=== PATIENT | male | born 1970 | race Caucasian/White ===

== ENCOUNTER 2021-01-11 14:11 | Inpatient (IN) | payer OTHER ==
[2021-01-11 15:22] VITALS: BMI 36.1
[2021-01-11] MEDS ORDERED: MAGNESIUM CITRATE 300 ML BOTTLE PO PRN (16:12)
[2021-01-11] MEDS ORDERED: MAG HYDROX/AL HYDROX/SIMETH 30 ML UNIT-DOSE CUP PO PRN (16:12)
[2021-01-11] MEDS ORDERED: hydrOXYzine PAMOATE 25 MG CAPSULE (FP) PO PRN (16:12)
[2021-01-11] MEDS ORDERED: IBUPROFEN 400 MG TABLET (FP) PO PRN (16:12)
[2021-01-11] MEDS ORDERED: ACETAMINOPHEN 325 MG TABLET (FP) PO PRN ×2 (16:12)
[2021-01-11] MEDS ORDERED: MENTHOL/PHENOL 1 EACH UD MM PRN (16:12)
[2021-01-11] MEDS ORDERED: MAGNESIUM HYDROX 2400MG/30ML ORAL SUSPENSION 30 ML CUP PO PRN (16:12)
[2021-01-11] MEDS ORDERED: BISMUTH SUBSALICYLATE 524 MG/30 ML PO PRN (16:12)
[2021-01-11] MEDS: ONDANSETRON *ODT* 4 MG TABLET SL PRN (18:42)
[2021-01-11] MEDS: METHOCARBAMOL 500 MG TABLET PO PRN (18:42)
[2021-01-11] MEDS: diazePAM 5 MG TABLET PO SCH ×2 (18:44→22:42)
[2021-01-11] MEDS: THIAMINE HCL 100 MG TABLET (FP) PO SCH (22:41)
[2021-01-11] MEDS: levETIRAcetam 500 MG TABLET (FP) PO SCH (22:41)
[2021-01-11] MEDS: MELATONIN 5 MG TABLETS PO SCH (22:42)
[2021-01-12] MEDS: diazePAM 5 MG TABLET PO SCH ×4 (05:54→22:26)
[2021-01-12] MEDS: diazePAM 5 MG TABLET PO PRN (09:06)
[2021-01-12] MEDS: PRENATAL VITAMINS W/ FOLIC ACID TABLET (FP) PO SCH (10:29)
[2021-01-12] MEDS: levETIRAcetam 500 MG TABLET (FP) PO SCH ×2 (10:29→22:32)
[2021-01-12] MEDS: ONDANSETRON *ODT* 4 MG TABLET SL PRN (10:32)
[2021-01-12 14:16] LABS: HEMOGLOBIN 12.8 GM/dL (11.7-16.9); MCH 25.3 pg (25.7-33.7); MEAN PLT VOLUME 8.5 fl (7.5-11.1); PLATELET COUNT 167 10^3/uL (134-434); RBC 5.05 M/mm3 (4.00-5.60); RDW 19.3 % (11.9-15.9)
[2021-01-12 14:26] LABS: CALCIUM 8.8 mg/dL (8.5-10.1)
[2021-01-12 14:27] LABS: ALBUMIN 3.4 g/dl (3.4-5.0)
[2021-01-12 14:32] LABS: BILIRUBIN,TOTAL 1.2 mg/dL (0.2-1); TOT PROT 6.6 g/dl (6.4-8.2)
[2021-01-12 14:38] LABS: CREATININE 0.8 mg/dL (0.55-1.3)
[2021-01-12] MEDS: THIAMINE HCL 100 MG TABLET (FP) PO SCH (22:26)
[2021-01-12] MEDS: MELATONIN 5 MG TABLETS PO SCH (22:27)
[2021-01-12] MEDS: METHOCARBAMOL 500 MG TABLET PO PRN (22:32)
[2021-01-13] MEDS: diazePAM 5 MG TABLET PO SCH ×3 (05:30→22:36)
[2021-01-13] MEDS: PRENATAL VITAMINS W/ FOLIC ACID TABLET (FP) PO SCH (10:06)
[2021-01-13] MEDS: levETIRAcetam 500 MG TABLET (FP) PO SCH ×2 (10:06→22:35)
[2021-01-13] MEDS: diazePAM 5 MG TABLET PO PRN (17:27)
[2021-01-13] MEDS: THIAMINE HCL 100 MG TABLET (FP) PO SCH (22:37)
[2021-01-13] MEDS: MELATONIN 5 MG TABLETS PO SCH (22:39)
[2021-01-14] MEDS: diazePAM 5 MG TABLET PO SCH ×2 (05:28→17:57)
[2021-01-14] MEDS: PRENATAL VITAMINS W/ FOLIC ACID TABLET (FP) PO SCH (10:40)
[2021-01-14] MEDS: diazePAM 5 MG TABLET PO PRN (10:40)
[2021-01-14] MEDS: levETIRAcetam 500 MG TABLET (FP) PO SCH ×2 (10:40→22:09)
[2021-01-14] MEDS: MELATONIN 5 MG TABLETS PO SCH (22:09)
[2021-01-14] MEDS: THIAMINE HCL 100 MG TABLET (FP) PO SCH (22:09)
[2021-01-14] MEDS: METHOCARBAMOL 500 MG TABLET PO PRN (22:11)
[2021-01-14 23:30] VITALS: TEMP 96.9
[2021-01-15] MEDS ORDERED: diazePAM 5 MG TABLET PO ONE (06:00)
[2021-01-15 06:28] VITALS: BP 116/59; PULSE 68
== END 2021-01-15 09:06 | disposition other institution (70) | DRG 775 ==
LOC: YASAS 14:11 → Y3N 16:11
PROVIDERS: ADMIT Allergy & Immunology; ATTEND Allergy & Immunology
PROC: HZ2ZZZZ Detoxification Services for Substance Abuse Treatment (ICD-10-PCS; principal; 2021-01-11)
DX: F10.230 Alcohol dependence with withdrawal, uncomplicated (principal); M54.5 Low back pain; G89.29 Other chronic pain; Z86.69 Personal history of other diseases of the nervous system and sense organs; Z90.49 Acquired absence of other specified parts of digestive tract; Z98.890 Other specified postprocedural states; Z88.0 Allergy status to penicillin
CPT/HCPCS: 36415; 80053; 85027; 86780; C9803; Q0162; U0003; U0005

== ENCOUNTER 2023-06-29 10:01 | Inpatient (IN) | payer OTHER ==
[2023-06-29 10:23] VITALS: BMI 36.2
[2023-06-29] MEDS ORDERED: chlordiazePOXIDE HCL 25 MG CAPSULE PO PRN (10:58)
[2023-06-29] MEDS ORDERED: TRIMETHOBENZAMIDE HCL 200MG/2ML INJ IM ONE (11:01)
[2023-06-29] MEDS ORDERED: LOPERAMIDE HCL 2 MG CAPSULE PO PRN (11:03)
[2023-06-29] MEDS ORDERED: MAG HYDROX/AL HYDROX/SIMETH 30 ML UNIT-DOSE CUP PO PRN (11:03)
[2023-06-29] MEDS ORDERED: guaiFENesin 600 MG TABLET.ER (FP) PO PRN (11:03)
[2023-06-29] MEDS ORDERED: P-EPHED 60MG/TRIPROLIDI 2.5MG TABLET PO PRN (11:03)
[2023-06-29] MEDS ORDERED: MAGNESIUM HYDROX 2400MG/30ML ORAL SUSPENSION 30 ML CUP PO PRN (11:03)
[2023-06-29] MEDS ORDERED: ONDANSETRON *ODT* 4 MG TABLET SL PRN (11:03)
[2023-06-29] MEDS ORDERED: BENZOCAINE/MENTHOL (CHLORASEPTIC ) LOZENGE MM PRN (11:03)
[2023-06-29] MEDS ORDERED: IBUPROFEN 600 MG TABLET (FP) PO PRN (11:03)
[2023-06-29] MEDS ORDERED: DICYCLOMINE HCL 10 MG CAPSULE PO PRN (11:03)
[2023-06-29] MEDS ORDERED: IBUPROFEN 400 MG TABLET (FP) PO PRN (11:03)
[2023-06-29] MEDS ORDERED: ACETAMINOPHEN 325 MG TABLET (FP) PO PRN (11:03)
[2023-06-29] MEDS ORDERED: BISMUTH SUBSALICYLATE 262 MG/15 ML BTL PO PRN (11:03)
[2023-06-29] MEDS ORDERED: BENZONATATE 200 MG CAPSULE PO PRN (11:03)
[2023-06-29] MEDS ORDERED: POLYETHYLENE GLYCOL (HEALTHYLAX) 3350 17 GM PACKET PO PRN (11:03)
[2023-06-29] MEDS ORDERED: chlordiazePOXIDE HCL 25 MG CAPSULE ONE (11:11)
[2023-06-29] MEDS: chlordiazePOXIDE HCL 25 MG CAPSULE PO SCH ×3 (11:18→22:19)
[2023-06-29] MEDS: levETIRAcetam 500 MG TABLET (FP) PO SCH ×2 (12:21→22:20)
[2023-06-29] MEDS ORDERED: METOPROLOL TARTRATE 25 MG TABLET (FP) PO ONE (14:00)
[2023-06-29] MEDS: MELATONIN 5 MG TABLETS PO SCH (22:20)
[2023-06-29] MEDS: THIAMINE HCL 100 MG TABLET (FP) PO SCH (22:20)
[2023-06-29] MEDS: METHOCARBAMOL 500 MG TABLET PO PRN (22:20)
[2023-06-30] MEDS: chlordiazePOXIDE HCL 25 MG CAPSULE PO SCH ×4 (05:26→22:27)
[2023-06-30 09:55] LABS: HEMATOCRIT 39.6 % (35.4-49); HEMOGLOBIN 12.8 GM/dL (11.7-16.9); MCH 26.5 pg (25.7-33.7); MCHC 32.3 g/dl (32.0-35.9); MEAN CELL VOLUME 82.2 fl (80-96); PLATELET COUNT 251 10^3/uL (134-434); RBC 4.82 M/mm3 (4.00-5.60); RDW 19.4 % (11.9-15.9); WHITE BLOOD COUNT 5.7 K/mm3 (4.0-10.0)
[2023-06-30] MEDS: levETIRAcetam 500 MG TABLET (FP) PO SCH ×2 (10:10→22:27)
[2023-06-30] MEDS: PRENATAL VITAMINS W/ FOLIC ACID TABLET (FP) PO SCH (10:12)
[2023-06-30 11:23] LABS: POTASSIUM 4.7 mmol/L (3.5-5.1)
[2023-06-30 11:55] LABS: ALBUMIN 2.8 g/dl (3.4-5.0); BLOOD UREA NITROGEN 7.3 mg/dL (7-18); CALCIUM 8.4 mg/dL (8.5-10.1)
[2023-06-30 11:58] LABS: CREATININE 0.9 mg/dL (0.55-1.3)
[2023-06-30 12:00] LABS: BILIRUBIN,TOTAL 0.4 mg/dL (0.2-1); TOT PROT 6.5 g/dl (6.4-8.2)
[2023-06-30] MEDS: MELATONIN 5 MG TABLETS PO SCH (22:27)
[2023-06-30] MEDS: THIAMINE HCL 100 MG TABLET (FP) PO SCH (22:27)
[2023-07-01] MEDS: chlordiazePOXIDE HCL 25 MG CAPSULE PO SCH ×4 (05:42→22:22)
[2023-07-01] MEDS: levETIRAcetam 500 MG TABLET (FP) PO SCH ×2 (10:06→22:22)
[2023-07-01] MEDS: PRENATAL VITAMINS W/ FOLIC ACID TABLET (FP) PO SCH (10:06)
[2023-07-01] MEDS: METHOCARBAMOL 500 MG TABLET PO PRN ×2 (15:13→22:24)
[2023-07-01] MEDS: hydrOXYzine PAMOATE 25 MG CAPSULE (FP) PO PRN (15:13)
[2023-07-01] MEDS: MELATONIN 5 MG TABLETS PO SCH (22:22)
[2023-07-01] MEDS: THIAMINE HCL 100 MG TABLET (FP) PO SCH (22:22)
[2023-07-02] MEDS ORDERED: chlordiazePOXIDE HCL 10 MG CAPSULE PO PRN
[2023-07-02] MEDS: chlordiazePOXIDE HCL 10 MG CAPSULE PO SCH ×4 (05:34→22:10)
[2023-07-02] MEDS: levETIRAcetam 500 MG TABLET (FP) PO SCH ×2 (10:03→22:11)
[2023-07-02] MEDS: PRENATAL VITAMINS W/ FOLIC ACID TABLET (FP) PO SCH (10:03)
[2023-07-02] MEDS: MELATONIN 5 MG TABLETS PO SCH (22:11)
[2023-07-02] MEDS: THIAMINE HCL 100 MG TABLET (FP) PO SCH (22:11)
[2023-07-02] MEDS: METHOCARBAMOL 500 MG TABLET PO PRN (22:12)
[2023-07-03] MEDS: chlordiazePOXIDE HCL 10 MG CAPSULE PO SCH ×2 (05:22→17:42)
[2023-07-03] MEDS: hydrOXYzine PAMOATE 25 MG CAPSULE (FP) PO PRN (10:04)
[2023-07-03] MEDS: PRENATAL VITAMINS W/ FOLIC ACID TABLET (FP) PO SCH (10:04)
[2023-07-03] MEDS: METHOCARBAMOL 500 MG TABLET PO PRN ×2 (10:04→22:03)
[2023-07-03] MEDS: THIAMINE HCL 100 MG TABLET (FP) PO SCH (22:03)
[2023-07-03] MEDS: MELATONIN 5 MG TABLETS PO SCH (22:03)
[2023-07-04] MEDS ORDERED: chlordiazePOXIDE HCL 10 MG CAPSULE PO ONE (05:00)
[2023-07-04 09:19] VITALS: BP 106/55; PULSE 94; RESP 16; TEMP 97.1
[2023-07-04] MEDS: PRENATAL VITAMINS W/ FOLIC ACID TABLET (FP) PO SCH (09:51)
== END 2023-07-04 10:14 | disposition other institution (70) | DRG 775 ==
LOC: YASAS 10:01 → Y3N 11:10
PROVIDERS: ADMIT Allergy & Immunology; ATTEND Surgery
PROC: HZ2ZZZZ Detoxification Services for Substance Abuse Treatment (ICD-10-PCS; principal; 2023-06-29)
DX: F10.230 Alcohol dependence with withdrawal, uncomplicated (principal); M19.90 Unspecified osteoarthritis, unspecified site; M54.50 Low back pain, unspecified; G89.29 Other chronic pain
CPT/HCPCS: 36415; 80053; 85027; 86780; 87635; 87811; Q0162

== ENCOUNTER 2023-08-14 14:10 | Inpatient (IN) | payer OTHER ==
[2023-08-14 14:33] VITALS: BMI 38.0
[2023-08-14] MEDS ORDERED: MAGNESIUM HYDROX 2400MG/30ML ORAL SUSPENSION 30 ML CUP PO PRN (17:39)
[2023-08-14] MEDS ORDERED: ONDANSETRON *ODT* 4 MG TABLET SL PRN (17:39)
[2023-08-14] MEDS ORDERED: guaiFENesin 600 MG TABLET.ER (FP) PO PRN (17:39)
[2023-08-14] MEDS ORDERED: NALOXONE HCL 0.4 MG/ML VIAL IM PRN (17:39)
[2023-08-14] MEDS ORDERED: hydrOXYzine PAMOATE 25 MG CAPSULE (FP) PO PRN (17:39)
[2023-08-14] MEDS ORDERED: LOPERAMIDE HCL 2 MG CAPSULE PO PRN (17:39)
[2023-08-14] MEDS ORDERED: BISMUTH SUBSALICYLATE 524 MG/30 ML PO PRN (17:39)
[2023-08-14] MEDS ORDERED: chlordiazePOXIDE HCL 25 MG CAPSULE PO PRN (17:39)
[2023-08-14] MEDS ORDERED: NALOXONE HCL (KLOXXADO) 8 MG SPRAY NS PRN (17:39)
[2023-08-14] MEDS ORDERED: BENZOCAINE/MENTHOL (CHLORASEPTIC ) LOZENGE MM PRN (17:39)
[2023-08-14] MEDS ORDERED: BENZONATATE 200 MG CAPSULE PO PRN (17:39)
[2023-08-14] MEDS ORDERED: DICYCLOMINE HCL 10 MG CAPSULE PO PRN (17:39)
[2023-08-14] MEDS ORDERED: IBUPROFEN 600 MG TABLET (FP) PO PRN (17:39)
[2023-08-14] MEDS ORDERED: ACETAMINOPHEN 325 MG TABLET (FP) PO PRN (17:39)
[2023-08-14] MEDS ORDERED: POLYETHYLENE GLYCOL (HEALTHYLAX) 3350 17 GM PACKET PO PRN (17:39)
[2023-08-14] MEDS ORDERED: MAG HYDROX/AL HYDROX/SIMETH 30 ML UNIT-DOSE CUP PO PRN (17:39)
[2023-08-14] MEDS ORDERED: IBUPROFEN 400 MG TABLET (FP) PO PRN (17:39)
[2023-08-14] MEDS ORDERED: chlordiazePOXIDE HCL 25 MG CAPSULE ONE (18:01)
[2023-08-14] MEDS: chlordiazePOXIDE HCL 25 MG CAPSULE PO ONE (18:09)
[2023-08-14] MEDS: MELATONIN 5 MG TABLETS PO SCH (22:22)
[2023-08-14] MEDS: METHOCARBAMOL 500 MG TABLET PO PRN (22:23)
[2023-08-14] MEDS: chlordiazePOXIDE HCL 25 MG CAPSULE PO SCH (22:23)
[2023-08-14] MEDS: THIAMINE HCL 100 MG TABLET (FP) PO SCH (22:23)
[2023-08-15] MEDS: PRENATAL VITAMINS W/ FOLIC ACID TABLET (FP) PO SCH (10:13)
[2023-08-15] MEDS: FLU VACCINE (FLULAVAL) PF 60 MCG/0.5 ML SYRINGE 2023-2024 IM ONE (11:43)
[2023-08-15 11:48] LABS: HEMATOCRIT 35.7 % (35.4-49); HEMOGLOBIN 11.6 GM/dL (11.7-16.9); MCH 26.7 pg (25.7-33.7); MCHC 32.5 g/dl (32.0-35.9); MEAN CELL VOLUME 82.2 fl (80-96); MEAN PLT VOLUME 8.3 fl (7.5-11.1); PLATELET COUNT 210 10^3/uL (134-434); RBC 4.34 M/mm3 (4.00-5.60); RDW 16.3 % (11.9-15.9)
[2023-08-15 12:18] LABS: CHLORIDE 109 mmol/L (98-107); POTASSIUM 3.8 mmol/L (3.5-5.1); SODIUM 142 mmol/L (136-145)
[2023-08-15 12:22] LABS: ALBUMIN 2.9 g/dl (3.4-5.0)
[2023-08-15 12:24] LABS: ANION GAP 3 mmol/L (4-13); BLOOD UREA NITROGEN 14.3 mg/dL (7-18); CALCIUM 8.2 mg/dL (8.5-10.1); CO2 29 mmol/L (21-32); GLUCOSE,RANDOM 87 mg/dL (74-106)
[2023-08-15 12:25] LABS: CREATININE 0.9 mg/dL (0.55-1.3); SGOT/AST 22 U/L (15-37); SGPT/ALT 22 U/L (13-61)
[2023-08-15 12:28] LABS: ALK PHOS 81 U/L (45-117); BILIRUBIN,TOTAL 0.4 mg/dL (0.2-1)
[2023-08-15 13:18] LABS: HIV INTERPRETATION NEGATIVE (NEGATIVE)
[2023-08-16] MEDS: chlordiazePOXIDE HCL 25 MG CAPSULE PO SCH (05:38)
[2023-08-17] MEDS ORDERED: chlordiazePOXIDE HCL 10 MG CAPSULE PO PRN
[2023-08-17] MEDS: chlordiazePOXIDE HCL 10 MG CAPSULE PO SCH (05:51)
[2023-08-17 06:11] VITALS: TEMP 98
[2023-08-17 09:16] VITALS: BP 113/75; PULSE 90; RESP 20
[2023-08-18] MEDS ORDERED: chlordiazePOXIDE HCL 10 MG CAPSULE PO SCH (05:00)
[2023-08-19] MEDS ORDERED: chlordiazePOXIDE HCL 10 MG CAPSULE PO ONE (05:00)
== END 2023-08-17 09:00 | disposition home or self-care (01) | DRG 775 ==
LOC: YASAS 14:10 → Y3N 18:24
PROVIDERS: ADMIT Allergy & Immunology; ATTEND Surgery
PROC: HZ2ZZZZ Detoxification Services for Substance Abuse Treatment (ICD-10-PCS; principal; 2023-08-14)
DX: F10.230 Alcohol dependence with withdrawal, uncomplicated (principal); D86.9 Sarcoidosis, unspecified; M54.50 Low back pain, unspecified; G89.29 Other chronic pain; Z88.0 Allergy status to penicillin; Z88.2 Allergy status to sulfonamides; Z88.8 Allergy status to other drugs, medicaments and biological substances
CPT/HCPCS: 36415; 80053; 80307; 85027; 86780; 87389; 87635; 90686; 93005; 93010; G0008

== ENCOUNTER 2023-09-09 16:58 | Inpatient (IN) | payer OTHER ==
[2023-09-09 18:09] VITALS: BMI 29.0
[2023-09-09] MEDS ORDERED: guaiFENesin 600 MG TABLET.ER (FP) PO PRN (20:46)
[2023-09-09] MEDS ORDERED: POLYETHYLENE GLYCOL (HEALTHYLAX) 3350 17 GM PACKET PO PRN (20:46)
[2023-09-09] MEDS ORDERED: ONDANSETRON *ODT* 4 MG TABLET SL PRN (20:46)
[2023-09-09] MEDS ORDERED: MAGNESIUM HYDROX 2400MG/30ML ORAL SUSPENSION 30 ML CUP PO PRN (20:46)
[2023-09-09] MEDS ORDERED: NALOXONE HCL 0.4 MG/ML VIAL IM PRN (20:46)
[2023-09-09] MEDS ORDERED: LOPERAMIDE HCL 2 MG CAPSULE PO PRN (20:46)
[2023-09-09] MEDS ORDERED: DICYCLOMINE HCL 10 MG CAPSULE PO PRN (20:46)
[2023-09-09] MEDS ORDERED: NALOXONE HCL (KLOXXADO) 8 MG SPRAY NS PRN (20:46)
[2023-09-09] MEDS ORDERED: BENZOCAINE/MENTHOL (CHLORASEPTIC ) LOZENGE MM PRN (20:46)
[2023-09-09] MEDS ORDERED: MAG HYDROX/AL HYDROX/SIMETH 30 ML UNIT-DOSE CUP PO PRN (20:46)
[2023-09-09] MEDS ORDERED: BENZONATATE 200 MG CAPSULE PO PRN (20:46)
[2023-09-09] MEDS ORDERED: chlordiazePOXIDE HCL 25 MG CAPSULE ONE (21:05)
[2023-09-09] MEDS: chlordiazePOXIDE HCL 25 MG CAPSULE PO ONE (21:15)
[2023-09-09] MEDS: chlordiazePOXIDE HCL 25 MG CAPSULE PO SCH (22:33)
[2023-09-09] MEDS: MELATONIN 5 MG TABLETS PO SCH (22:33)
[2023-09-09] MEDS: THIAMINE HCL 100 MG TABLET (FP) PO SCH (22:33)
[2023-09-10] MEDS: hydrOXYzine PAMOATE 25 MG CAPSULE (FP) PO PRN (02:02)
[2023-09-10] MEDS: chlordiazePOXIDE HCL 25 MG CAPSULE PO PRN (02:13)
[2023-09-10] MEDS: PRENATAL VITAMINS W/ FOLIC ACID TABLET (FP) PO SCH (10:11)
[2023-09-10] MEDS: ACETAMINOPHEN 325 MG TABLET (FP) PO PRN (10:13)
[2023-09-10 12:54] LABS: HEMATOCRIT 40.8 % (35.4-49); HEMOGLOBIN 13.4 GM/dL (11.7-16.9); MCH 26.3 pg (25.7-33.7); MCHC 32.9 g/dl (32.0-35.9); MEAN CELL VOLUME 79.9 fl (80-96); MEAN PLT VOLUME 8.9 fl (7.5-11.1); PLATELET COUNT 224 10^3/uL (134-434); RBC 5.11 M/mm3 (4.00-5.60); RDW 16.2 % (11.9-15.9); WHITE BLOOD COUNT 9.1 K/mm3 (4.0-10.0)
[2023-09-10 13:04] LABS: CHLORIDE 104 mmol/L (98-107); POTASSIUM 4.3 mmol/L (3.5-5.1); SODIUM 139 mmol/L (136-145)
[2023-09-10 13:12] LABS: CALCIUM 8.8 mg/dL (8.5-10.1)
[2023-09-10 13:13] LABS: ALBUMIN 3.4 g/dl (3.4-5.0); ANION GAP 8 mmol/L (4-13); BLOOD UREA NITROGEN 12.1 mg/dL (7-18); CO2 27 mmol/L (21-32); GLUCOSE,RANDOM 105 mg/dL (74-106)
[2023-09-10 13:15] LABS: CREATININE 0.9 mg/dL (0.55-1.3); SGPT/ALT 34 U/L (13-61)
[2023-09-10 13:16] LABS: SGOT/AST 36 U/L (15-37); TOT PROT 7.2 g/dl (6.4-8.2)
[2023-09-10 13:18] LABS: ALK PHOS 137 U/L (45-117)
[2023-09-10 13:24] LABS: BILIRUBIN,TOTAL 0.8 mg/dL (0.2-1)
[2023-09-11] MEDS: chlordiazePOXIDE HCL 25 MG CAPSULE PO SCH (05:18)
[2023-09-12] MEDS ORDERED: chlordiazePOXIDE HCL 10 MG CAPSULE PO PRN
[2023-09-12] MEDS: chlordiazePOXIDE HCL 10 MG CAPSULE PO SCH (05:16)
[2023-09-13] MEDS: chlordiazePOXIDE HCL 10 MG CAPSULE PO SCH (05:56)
[2023-09-13 22:06] VITALS: RESP 16
[2023-09-14] MEDS: chlordiazePOXIDE HCL 10 MG CAPSULE PO ONE (05:11)
[2023-09-14 05:43] VITALS: BP 107/68; PULSE 70; TEMP 97.8
== END 2023-09-14 09:15 | disposition home or self-care (01) | DRG 775 ==
LOC: YASAS 16:58 → Y6N 21:25
PROVIDERS: ADMIT Allergy & Immunology; ATTEND Psychiatry & Neurology Pain Medicine
PROC: HZ2ZZZZ Detoxification Services for Substance Abuse Treatment (ICD-10-PCS; principal; 2023-09-09)
DX: F10.230 Alcohol dependence with withdrawal, uncomplicated (principal); F19.24 Other psychoactive substance dependence with psychoactive substance-induced mood disorder; D86.9 Sarcoidosis, unspecified; M54.50 Low back pain, unspecified; G89.29 Other chronic pain; Z88.0 Allergy status to penicillin; Z88.2 Allergy status to sulfonamides; Z88.8 Allergy status to other drugs, medicaments and biological substances
CPT/HCPCS: 36415; 80053; 80305; 80307; 85027; 86780; 87635

== ENCOUNTER 2023-11-24 11:10 | Inpatient (IN) | payer OTHER ==
[2023-11-24] MEDS ORDERED: chlordiazePOXIDE HCL 25 MG CAPSULE PO PRN (11:55)
[2023-11-24] MEDS ORDERED: guaiFENesin 600 MG TABLET.ER (FP) PO PRN (11:59)
[2023-11-24] MEDS ORDERED: MAGNESIUM HYDROX 2400MG/30ML ORAL SUSPENSION 30 ML CUP PO PRN (11:59)
[2023-11-24] MEDS ORDERED: LOPERAMIDE HCL 2 MG CAPSULE PO PRN (11:59)
[2023-11-24] MEDS ORDERED: DICYCLOMINE HCL 10 MG CAPSULE PO PRN (11:59)
[2023-11-24] MEDS ORDERED: MAG HYDROX/AL HYDROX/SIMETH 30 ML UNIT-DOSE CUP PO PRN (11:59)
[2023-11-24] MEDS ORDERED: BENZOCAINE/MENTHOL (CHLORASEPTIC ) LOZENGE MM PRN (11:59)
[2023-11-24] MEDS ORDERED: POLYETHYLENE GLYCOL (HEALTHYLAX) 3350 17 GM PACKET PO PRN (11:59)
[2023-11-24] MEDS ORDERED: ONDANSETRON *ODT* 4 MG TABLET SL PRN (11:59)
[2023-11-24] MEDS ORDERED: BENZONATATE 200 MG CAPSULE PO PRN (11:59)
[2023-11-24] MEDS ORDERED: chlordiazePOXIDE HCL 25 MG CAPSULE ONE (12:33)
[2023-11-24] MEDS: chlordiazePOXIDE HCL 25 MG CAPSULE PO ONE (12:34)
[2023-11-24] MEDS: chlordiazePOXIDE HCL 25 MG CAPSULE PO SCH (17:20)
[2023-11-24] MEDS: ACETAMINOPHEN 325 MG TABLET (FP) PO PRN (17:23)
[2023-11-24] MEDS: MELATONIN 5 MG TABLETS PO SCH (22:11)
[2023-11-24] MEDS: THIAMINE 100 MG TABLET PO SCH (22:11)
[2023-11-24] MEDS: hydrOXYzine PAMOATE 25 MG CAPSULE (FP) PO PRN (22:13)
[2023-11-24] MEDS: METHOCARBAMOL 500 MG TABLET PO PRN (22:13)
[2023-11-25] MEDS: PRENATAL VITAMINS W/ FOLIC ACID TABLET (FP) PO SCH (10:09)
[2023-11-25 14:40] LABS: POTASSIUM 3.7 mmol/L (3.5-5.1)
[2023-11-25 14:41] LABS: HEMOGLOBIN 11.8 GM/dL (11.7-16.9); MCH 24.8 pg (25.7-33.7); MCHC 31.9 g/dl (32.0-35.9); MEAN CELL VOLUME 77.9 fl (80-96); MEAN PLT VOLUME 8.8 fl (7.5-11.1); PLATELET COUNT 217 10^3/uL (134-434); RBC 4.75 M/mm3 (4.00-5.60); RDW 18.1 % (11.9-15.9); WHITE BLOOD COUNT 6.7 K/mm3 (4.0-10.0)
[2023-11-25 14:42] LABS: CALCIUM 8.5 mg/dL (8.5-10.1)
[2023-11-25 14:43] LABS: BLOOD UREA NITROGEN 12.5 mg/dL (7-18)
[2023-11-25 14:46] LABS: CREATININE 0.9 mg/dL (0.55-1.3)
[2023-11-25 14:47] LABS: BILIRUBIN,TOTAL 0.6 mg/dL (0.2-1); TOT PROT 6.2 g/dl (6.4-8.2)
[2023-11-26] MEDS: chlordiazePOXIDE HCL 25 MG CAPSULE PO SCH (05:32)
[2023-11-26 08:35] VITALS: BP 129/80; PULSE 84; RESP 18; TEMP 97.6
[2023-11-27] MEDS ORDERED: chlordiazePOXIDE HCL 10 MG CAPSULE PO PRN
[2023-11-27] MEDS ORDERED: chlordiazePOXIDE HCL 10 MG CAPSULE PO SCH (05:00)
[2023-11-28] MEDS ORDERED: chlordiazePOXIDE HCL 10 MG CAPSULE PO SCH (05:00)
[2023-11-29] MEDS ORDERED: chlordiazePOXIDE HCL 10 MG CAPSULE PO ONE (05:00)
== END 2023-11-26 12:12 | disposition home or self-care (01) | DRG 775 ==
LOC: YASAS 11:10 → Y6N 12:15
PROVIDERS: ADMIT Allergy & Immunology; ATTEND Surgery
PROC: HZ2ZZZZ Detoxification Services for Substance Abuse Treatment (ICD-10-PCS; principal; 2023-11-24)
DX: F10.230 Alcohol dependence with withdrawal, uncomplicated (principal); D86.9 Sarcoidosis, unspecified; Z88.0 Allergy status to penicillin; Z88.2 Allergy status to sulfonamides
CPT/HCPCS: 36415; 80053; 80305; 85027; 86780; 93005; 93010

== ENCOUNTER 2023-12-16 12:09 | Inpatient (IN) | payer OTHER ==
[2023-12-16 13:50] VITALS: BMI 39.3
[2023-12-16] MEDS ORDERED: POLYETHYLENE GLYCOL (HEALTHYLAX) 3350 17 GM PACKET PO PRN (17:21)
[2023-12-16] MEDS ORDERED: LOPERAMIDE HCL 2 MG CAPSULE PO PRN (17:21)
[2023-12-16] MEDS ORDERED: BISMUTH SUBSALICYLATE 524 MG/30 ML PO PRN (17:21)
[2023-12-16] MEDS ORDERED: BENZONATATE 200 MG CAPSULE PO PRN (17:21)
[2023-12-16] MEDS ORDERED: BENZOCAINE/MENTHOL (CHLORASEPTIC ) LOZENGE MM PRN (17:21)
[2023-12-16] MEDS ORDERED: DICYCLOMINE HCL 10 MG CAPSULE PO PRN (17:21)
[2023-12-16] MEDS ORDERED: MAGNESIUM HYDROX 2400MG/30ML ORAL SUSPENSION 30 ML CUP PO PRN (17:21)
[2023-12-16] MEDS ORDERED: ONDANSETRON *ODT* 4 MG TABLET SL PRN (17:21)
[2023-12-16] MEDS ORDERED: guaiFENesin 600 MG TABLET.ER (FP) PO PRN (17:21)
[2023-12-16] MEDS ORDERED: MAG HYDROX/AL HYDROX/SIMETH 30 ML UNIT-DOSE CUP PO PRN (17:21)
[2023-12-16] MEDS ORDERED: NICOTINE POLACRILEX 2 MG LOZENGE BC PRN (17:21)
[2023-12-16] MEDS ORDERED: TRIMETHOBENZAMIDE HCL 200MG/2ML INJ IM ONE (17:33)
[2023-12-16] MEDS ORDERED: chlordiazePOXIDE HCL 25 MG CAPSULE ONE (17:33)
[2023-12-16] MEDS: TRIMETHOBENZAMIDE HCL 200MG/2ML INJ IM ONE (17:41)
[2023-12-16] MEDS: chlordiazePOXIDE HCL 25 MG CAPSULE PO SCH (17:49)
[2023-12-16] MEDS: MELATONIN 5 MG TABLETS PO SCH (22:01)
[2023-12-16] MEDS: THIAMINE 100 MG TABLET PO SCH (22:01)
[2023-12-16] MEDS: METHOCARBAMOL 500 MG TABLET PO PRN (22:03)
[2023-12-17] MEDS: chlordiazePOXIDE HCL 25 MG CAPSULE PO PRN (00:25)
[2023-12-17] MEDS: hydrOXYzine PAMOATE 25 MG CAPSULE (FP) PO PRN (00:26)
[2023-12-17] MEDS: PRENATAL VITAMINS W/ FOLIC ACID TABLET (FP) PO SCH (10:05)
[2023-12-18] MEDS: chlordiazePOXIDE HCL 25 MG CAPSULE PO SCH (06:00)
[2023-12-18] MEDS: GABAPENTIN 300 MG CAPSULE PO PRN (12:41)
[2023-12-18] MEDS: METHOCARBAMOL 500 MG TABLET PO PRN (12:41)
[2023-12-19] MEDS ORDERED: chlordiazePOXIDE HCL 10 MG CAPSULE PO PRN
[2023-12-19] MEDS: chlordiazePOXIDE HCL 10 MG CAPSULE PO SCH (05:47)
[2023-12-19] MEDS: ACETAMINOPHEN 325 MG TABLET (FP) PO PRN (17:10)
[2023-12-20] MEDS: chlordiazePOXIDE HCL 10 MG CAPSULE PO SCH (05:21)
[2023-12-20 08:54] VITALS: BP 121/75; PULSE 79; RESP 18; TEMP 97.3
[2023-12-21] MEDS ORDERED: chlordiazePOXIDE HCL 10 MG CAPSULE PO ONE (05:00)
== END 2023-12-20 10:33 | disposition home or self-care (01) | DRG 775 ==
LOC: YASAS 12:09 → Y6N 17:47 → Y3N 18:05
PROVIDERS: ADMIT Allergy & Immunology; ATTEND Surgery
PROC: HZ2ZZZZ Detoxification Services for Substance Abuse Treatment (ICD-10-PCS; principal; 2023-12-15)
DX: F10.230 Alcohol dependence with withdrawal, uncomplicated (principal); F13.20 Sedative, hypnotic or anxiolytic dependence, uncomplicated; D86.9 Sarcoidosis, unspecified; M54.50 Low back pain, unspecified; G89.29 Other chronic pain; Z88.0 Allergy status to penicillin; Z88.2 Allergy status to sulfonamides; Z88.8 Allergy status to other drugs, medicaments and biological substances
CPT/HCPCS: 80305

== ENCOUNTER 2024-01-27 10:14 | Inpatient (IN) | payer OTHER ==
[2024-01-27 10:32] VITALS: BMI 40.4
[2024-01-27] MEDS ORDERED: ACETAMINOPHEN 325 MG TABLET (FP) PO PRN (10:40)
[2024-01-27] MEDS ORDERED: DICYCLOMINE HCL 10 MG CAPSULE PO PRN (10:40)
[2024-01-27] MEDS ORDERED: BENZONATATE 200 MG CAPSULE PO PRN (10:40)
[2024-01-27] MEDS ORDERED: guaiFENesin 600 MG TABLET.ER (FP) PO PRN (10:40)
[2024-01-27] MEDS ORDERED: ONDANSETRON *ODT* 4 MG TABLET SL PRN (10:40)
[2024-01-27] MEDS ORDERED: POLYETHYLENE GLYCOL (HEALTHYLAX) 3350 17 GM PACKET PO PRN (10:40)
[2024-01-27] MEDS ORDERED: MAG HYDROX/AL HYDROX/SIMETH 30 ML UNIT-DOSE CUP PO PRN (10:40)
[2024-01-27] MEDS ORDERED: BENZOCAINE/MENTHOL (CHLORASEPTIC ) LOZENGE MM PRN (10:40)
[2024-01-27] MEDS ORDERED: LOPERAMIDE HCL 2 MG CAPSULE PO PRN (10:40)
[2024-01-27] MEDS ORDERED: MAGNESIUM HYDROX 2400MG/30ML ORAL SUSPENSION 30 ML CUP PO PRN (10:40)
[2024-01-27] MEDS ORDERED: METOPROLOL TARTRATE 25 MG TABLET (FP) ONE (10:59)
[2024-01-27] MEDS ORDERED: chlordiazePOXIDE HCL 25 MG CAPSULE ONE (10:59)
[2024-01-27] MEDS: METOPROLOL TARTRATE 25 MG TABLET (FP) PO ONE (11:08)
[2024-01-27] MEDS: chlordiazePOXIDE HCL 25 MG CAPSULE PO SCH (11:08)
[2024-01-27] MEDS ORDERED: ONDANSETRON *ODT* 4 MG TABLET ONE (11:15)
[2024-01-27] MEDS: hydrOXYzine PAMOATE 25 MG CAPSULE (FP) PO PRN (13:41)
[2024-01-27] MEDS: METHOCARBAMOL 500 MG TABLET PO PRN (19:20)
[2024-01-27] MEDS: chlordiazePOXIDE HCL 25 MG CAPSULE PO PRN (19:21)
[2024-01-27] MEDS: THIAMINE 100 MG TABLET PO SCH (22:28)
[2024-01-27] MEDS: MELATONIN 5 MG TABLETS PO SCH (22:28)
[2024-01-28 09:41] LABS: HEMATOCRIT 36.5 % (35.4-49); HEMOGLOBIN 11.9 GM/dL (11.7-16.9); MCH 25.8 pg (25.7-33.7); MCHC 32.7 g/dl (32.0-35.9); MEAN PLT VOLUME 8.2 fl (7.5-11.1); PLATELET COUNT 180 10^3/uL (134-434); RBC 4.62 M/mm3 (4.00-5.60); RDW 19.5 % (11.9-15.9); WHITE BLOOD COUNT 4.6 K/mm3 (4.0-10.0)
[2024-01-28 09:49] LABS: POTASSIUM 3.6 mmol/L (3.5-5.1)
[2024-01-28 09:54] LABS: CALCIUM 8.1 mg/dL (8.5-10.1)
[2024-01-28 09:55] LABS: ALBUMIN 2.9 g/dl (3.4-5.0); BLOOD UREA NITROGEN 8.4 mg/dL (7-18)
[2024-01-28 09:57] LABS: CREATININE 0.8 mg/dL (0.55-1.3)
[2024-01-28 09:58] LABS: BILIRUBIN,TOTAL 0.7 mg/dL (0.2-1); TOT PROT 5.8 g/dl (6.4-8.2)
[2024-01-28] MEDS: PRENATAL VITAMINS W/ FOLIC ACID TABLET (FP) PO SCH (10:06)
[2024-01-28] MEDS ORDERED: GABAPENTIN 300 MG CAPSULE PO PRN (14:20)
[2024-01-28] MEDS: NALTREXONE HCL 50 MG TABLET PO SCH (14:40)
[2024-01-28] MEDS: chlordiazePOXIDE HCL 25 MG CAPSULE PO ONE (14:40)
[2024-01-29] MEDS: chlordiazePOXIDE HCL 25 MG CAPSULE PO SCH (06:33)
[2024-01-29] MEDS: GABAPENTIN 300 MG CAPSULE PO SCH (22:07)
[2024-01-30] MEDS ORDERED: chlordiazePOXIDE HCL 10 MG CAPSULE PO PRN
[2024-01-30] MEDS: chlordiazePOXIDE HCL 10 MG CAPSULE PO SCH (05:38)
[2024-01-31] MEDS: chlordiazePOXIDE HCL 10 MG CAPSULE PO SCH (05:50)
[2024-01-31 21:20] VITALS: RESP 16
[2024-02-01] MEDS: chlordiazePOXIDE HCL 10 MG CAPSULE PO ONE (05:46)
[2024-02-01 09:15] VITALS: BP 121/75; PULSE 68; TEMP 96.9
== END 2024-02-01 09:40 | disposition other institution (70) | DRG 775 ==
LOC: YASAS 10:14 → Y6N 11:02
PROVIDERS: ADMIT Allergy & Immunology; ATTEND Surgery
PROC: HZ2ZZZZ Detoxification Services for Substance Abuse Treatment (ICD-10-PCS; principal; 2024-01-27)
DX: F10.230 Alcohol dependence with withdrawal, uncomplicated (principal); F41.9 Anxiety disorder, unspecified; G62.9 Polyneuropathy, unspecified; M54.50 Low back pain, unspecified; G89.29 Other chronic pain; Z88.0 Allergy status to penicillin; Z88.2 Allergy status to sulfonamides
CPT/HCPCS: 36415; 80053; 80305; 80307; 85027; 86780

== ENCOUNTER 2024-03-02 12:37 | Inpatient (IN) | payer OTHER ==
[2024-03-02 13:53] VITALS: BMI 39.3
[2024-03-02] MEDS ORDERED: chlordiazePOXIDE HCL 25 MG CAPSULE PO PRN (16:45)
[2024-03-02] MEDS ORDERED: DICYCLOMINE HCL 10 MG CAPSULE PO PRN (16:47)
[2024-03-02] MEDS ORDERED: BISMUTH SUBSALICYLATE 524 MG/30 ML PO PRN (16:47)
[2024-03-02] MEDS ORDERED: NALOXONE (NARCAN) HCL 4 MG/0.1 ML SPRAY NS PRN (16:47)
[2024-03-02] MEDS ORDERED: BENZONATATE 200 MG CAPSULE PO PRN (16:47)
[2024-03-02] MEDS ORDERED: BENZOCAINE/MENTHOL (CHLORASEPTIC ) LOZENGE MM PRN (16:47)
[2024-03-02] MEDS ORDERED: POLYETHYLENE GLYCOL (HEALTHYLAX) 3350 17 GM PACKET PO PRN (16:47)
[2024-03-02] MEDS ORDERED: IBUPROFEN 600 MG TABLET (FP) PO PRN (16:47)
[2024-03-02] MEDS ORDERED: MAGNESIUM HYDROX 2400MG/30ML ORAL SUSPENSION 30 ML CUP PO PRN (16:47)
[2024-03-02] MEDS ORDERED: ACETAMINOPHEN 325 MG TABLET (FP) PO PRN (16:47)
[2024-03-02] MEDS ORDERED: IBUPROFEN 400 MG TABLET (FP) PO PRN (16:47)
[2024-03-02] MEDS ORDERED: LOPERAMIDE HCL 2 MG CAPSULE PO PRN (16:47)
[2024-03-02] MEDS ORDERED: ONDANSETRON *ODT* 4 MG TABLET SL PRN (16:47)
[2024-03-02] MEDS ORDERED: guaiFENesin 600 MG TABLET.ER (FP) PO PRN (16:47)
[2024-03-02] MEDS ORDERED: NALOXONE HCL 0.4 MG/ML VIAL IM PRN (16:47)
[2024-03-02] MEDS ORDERED: MAG HYDROX/AL HYDROX/SIMETH 30 ML UNIT-DOSE CUP PO PRN (16:47)
[2024-03-02] MEDS ORDERED: chlordiazePOXIDE HCL 25 MG CAPSULE ONE (17:09)
[2024-03-02] MEDS: chlordiazePOXIDE HCL 25 MG CAPSULE PO SCH (17:23)
[2024-03-02] MEDS: MELATONIN 5 MG TABLETS PO SCH (22:07)
[2024-03-02] MEDS: THIAMINE 100 MG TABLET PO SCH (22:07)
[2024-03-02] MEDS: METHOCARBAMOL 500 MG TABLET PO PRN (22:08)
[2024-03-02] MEDS: hydrOXYzine PAMOATE 25 MG CAPSULE (FP) PO PRN (23:49)
[2024-03-03 10:11] LABS: HEMATOCRIT 37.2 % (35.4-49); HEMOGLOBIN 12.3 GM/dL (11.7-16.9); MCH 25.9 pg (25.7-33.7); MEAN CELL VOLUME 78.6 fl (80-96); MEAN PLT VOLUME 8.7 fl (7.5-11.1); PLATELET COUNT 195 10^3/uL (134-434); RBC 4.74 M/mm3 (4.00-5.60); RDW 18.6 % (11.9-15.9); WHITE BLOOD COUNT 6.3 K/mm3 (4.0-10.0)
[2024-03-03] MEDS: PRENATAL VITAMINS W/ FOLIC ACID TABLET (FP) PO SCH (10:13)
[2024-03-03 10:58] LABS: CHLORIDE 105 mmol/L (98-107); SODIUM 141 mmol/L (136-145)
[2024-03-03 11:09] LABS: CALCIUM 8.4 mg/dL (8.5-10.1)
[2024-03-03 11:10] LABS: ALBUMIN 3.1 g/dl (3.4-5.0); ANION GAP 10 mmol/L (4-13); BLOOD UREA NITROGEN 15.5 mg/dL (7-18); CO2 26 mmol/L (21-32); GLUCOSE,RANDOM 97 mg/dL (74-106)
[2024-03-03 11:13] LABS: CREATININE 0.8 mg/dL (0.55-1.3); SGOT/AST 34 U/L (15-37); SGPT/ALT 33 U/L (13-61)
[2024-03-03 11:14] LABS: BILIRUBIN,TOTAL 0.7 mg/dL (0.2-1); TOT PROT 6.2 g/dl (6.4-8.2)
[2024-03-03 11:16] LABS: ALK PHOS 107 U/L (45-117)
[2024-03-03 12:10] LABS: EPI CELLS 11 /uL (0-25.1); HYALINE CASTS 1 /uL (0-3.1); URINE APPEARANCE CLEAR; URINE BACTERIA 28 /uL (0-1359); URINE BILIRUBIN NEGATIVE (NEGATIVE); URINE COLOR YELLOW; URINE GLUCOSE (UA) NEGATIVE (NEGATIVE); URINE KETONE NEGATIVE (NEGATIVE); URINE LEUK ESTERASE NEGATIVE (NEGATIVE); URINE NITRITE NEGATIVE (NEGATIVE); URINE PROTEIN 1+ (NEGATIVE); URINE RBC 13 /uL (0-23.9); URINE WBC 12 /uL (0-25.8)
[2024-03-03] MEDS: MELATONIN 5 MG TABLETS PO SCH (22:06)
[2024-03-04] MEDS: chlordiazePOXIDE HCL 25 MG CAPSULE PO SCH (05:56)
[2024-03-05] MEDS ORDERED: chlordiazePOXIDE HCL 10 MG CAPSULE PO PRN
[2024-03-05] MEDS: chlordiazePOXIDE HCL 10 MG CAPSULE PO SCH (05:45)
[2024-03-06] MEDS: chlordiazePOXIDE HCL 10 MG CAPSULE PO SCH (05:55)
[2024-03-07] MEDS: chlordiazePOXIDE HCL 10 MG CAPSULE PO ONE (05:49)
[2024-03-07 06:30] VITALS: RESP 16
[2024-03-07 09:47] VITALS: BP 119/74; PULSE 80; TEMP 97.7
== END 2024-03-07 09:20 | disposition home or self-care (01) | DRG 775 ==
LOC: YASAS 12:37 → Y3N 17:17
PROVIDERS: ADMIT Surgery; ATTEND Surgery
PROC: HZ2ZZZZ Detoxification Services for Substance Abuse Treatment (ICD-10-PCS; principal; 2024-03-02)
DX: F10.230 Alcohol dependence with withdrawal, uncomplicated (principal); F17.210 Nicotine dependence, cigarettes, uncomplicated; F41.9 Anxiety disorder, unspecified; Z98.890 Other specified postprocedural states; Z88.2 Allergy status to sulfonamides; Z88.8 Allergy status to other drugs, medicaments and biological substances
CPT/HCPCS: 36415; 80053; 80305; 80307; 81003; 85027; 86780; 93005; 93010